=== PATIENT | male | born 1995 | race Caucasian/White ===

== ENCOUNTER 2018-03-04 18:16 | Emergency (ER) | payer OTHER ==
[~2018-03-04] VITALS: Ht 177.8 cm; Wt 83.9 kg
[2018-03-04 18:31] VITALS: Ht 177.8 cm; Wt 83.9 kg
[2018-03-04 22:56] VITALS: BP 121/68
== END 2018-03-04 22:56 | disposition home or self-care (01) ==
LOC: ED 18:16
DX: K52.9 Noninfective gastroenteritis and colitis, unspecified (principal); J45.909 Unspecified asthma, uncomplicated